=== PATIENT | female | born 1985 | race Two or more races ===

== ENCOUNTER 2022-01-15 13:55 | Observation (INO) | payer MEDICAID, OTHER ==
[2022-01-15] MEDS ORDERED: PREN-96 PO (16:12)
== END 2022-01-15 16:22 | disposition home or self-care (01) ==
LOC: UNDOADMOB 13:55 → LDRP 13:55
PROVIDERS: ADMIT Obstetrics & Gynecology; ATTEND Obstetrics & Gynecology
DX: O24.419 Gestational diabetes mellitus in pregnancy, unspecified control (principal); Z3A.35 35 weeks gestation of pregnancy
CPT/HCPCS: 76818; 82962; G0378; 59025; 81002; 82948; 94760

== ENCOUNTER 2022-01-22 07:40 | Observation (INO) | payer SELFPAY ==
[~2022-01-22 07:40] MED LIST: PREN-96 PO
== END 2022-01-22 16:15 | disposition home or self-care (01) ==
LOC: LDRP 14:15 → UNDOADMOB 14:15 → LDRP 14:20 → UNDODISOB 16:15
PROVIDERS: ADMIT Obstetrics & Gynecology; ATTEND Obstetrics & Gynecology
DX: O24.419 Gestational diabetes mellitus in pregnancy, unspecified control (principal); Z3A.36 36 weeks gestation of pregnancy
CPT/HCPCS: 59025; 76818; 81002; 82948; 82962; G0378

== ENCOUNTER 2022-01-30 07:21 | Observation (INO) | payer MEDICAID | END 2022-01-30 12:57 | disposition home or self-care (01) | LOC: LDRP 11:35 → UNDOADMOB 11:40 → UNDODISOB 12:57 | PROVIDERS: ADMIT Obstetrics & Gynecology; ATTEND Obstetrics & Gynecology | DX: O24.419 Gestational diabetes mellitus in pregnancy, unspecified control (principal); Z3A.37 37 weeks gestation of pregnancy | CPT/HCPCS: 59025; 76818; 81002; 82948; 82962; 94760; G0378 ==

== ENCOUNTER 2022-02-06 08:11 | Observation (INO) | payer MEDICAID | END 2022-02-08 15:08 | disposition home or self-care (01) | LOC: LDRP 02-08 11:55 → UNDOADMOB 02-08 11:55 → LDRP 02-08 12:10 → UNDODISOB 02-08 15:08 | PROVIDERS: ADMIT Obstetrics & Gynecology; ATTEND Obstetrics & Gynecology | DX: O24.419 Gestational diabetes mellitus in pregnancy, unspecified control (principal); Z3A.38 38 weeks gestation of pregnancy | CPT/HCPCS: 59025; 76818; 81002; 82962; 94760; G0378 ==

== ENCOUNTER 2022-02-15 11:52 | Observation (INO) | payer MEDICAID | END 2022-02-15 13:53 | disposition home or self-care (01) | LOC: LDRP 11:52 → UNDOADMOB 11:52 → LDRP 11:53 | PROVIDERS: ADMIT Obstetrics & Gynecology; ATTEND Obstetrics & Gynecology | DX: O24.419 Gestational diabetes mellitus in pregnancy, unspecified control (principal); Z3A.39 39 weeks gestation of pregnancy | CPT/HCPCS: 59025; 76818; 81002; 82948; 82962; 94760; G0378 ==

== ENCOUNTER 2022-02-18 12:11 | Inpatient (IN) | payer MEDICAID ==
[~2022-02-18] VITALS: Ht 154.9 cm; Wt 78.9 kg
[2022-02-18] MEDS ORDERED: PENICILLIN G POT 5MIL/D5 50ML 50 ML IV ONE (13:00)
[2022-02-18] MEDS ORDERED: WITCH HAZEL-GLYCERIN PAD TOP PRN (13:00)
[2022-02-18] MEDS ORDERED: PHISODERM TOP SOLN 240ML BTL TOP PRN (13:00)
[2022-02-18] MEDS ORDERED: LIDOCAINE 2%HCL (LOCAL ANESTH.) INJ 10ml MDV IJ PRN (13:00)
[2022-02-18] MEDS ORDERED: PROMETHAZINE HCL 25 MG/ML 1ML IV PRN (13:00)
[2022-02-18] MEDS ORDERED: BUTORPHANOL TARTRATE 2 MG/1 ML VIAL IV PRN ×2 (13:00)
[2022-02-18] MEDS ORDERED: LACT. RINGERS/OXYTOCIN 20UNITS 500 ML IV ONE ×2 (13:00→13:30)
[2022-02-18] MEDS ORDERED: DERMOPLAST 60ML BOTTLE TOP PRN (13:00)
[2022-02-18] MEDS: LACTATED RINGER'S 1,000 ML IV SCH ×2 (13:06→20:31)
[2022-02-18 13:46] LABS: Albumin 2.6 g/dL (3.4-5.0); Calcium 8.5 mg/dL (8.5-10.1)
[2022-02-18 13:50] LABS: BUN/Creatinine Ratio 18.2; Bilirubin, Total 0.3 mg/dL (0.2-1.0); Total Protein 6.4 g/dL (6.4-8.2)
[2022-02-18 13:57] LABS: Amphetamine Screen, Urine NEGATIVE (NEGATIVE); Barbiturate Scree,Urine NEGATIVE (NEGATIVE); Benzodiazephine Screen, Urine NEGATIVE (NEGATIVE); Cannabinoid Screen, Urine NEGATIVE (NEGATIVE); Cocaine Screen, Urine NEGATIVE (NEGATIVE); Opiate Scree,Urine NEGATIVE (NEGATIVE); Phencyclidine Screen, Urine NEGATIVE (NEGATIVE)
[2022-02-18 14:07] LABS: Urine Bacteria FEW /hpf (None Seen); Urine Blood Negative /uL (Negative); Urine Specific Gravity 1.005 (1.001-1.035); Urine WBC 4 /hpf (0 - 5)
[2022-02-18 14:08] LABS: Basophils # (auto) 0 10 ^3/uL (0-0.2); Basophils % (auto) 0.2 % (0.0-2.0); Eosinophils # (auto) 0 10 ^3/uL (0-0.8); Eosinophils % (auto) 0.6 % (0.0-7.0); Hematocrit 31.1 % (36.0-46.0); Hemoglobin 10.6 g/dL (12.2-16.2); Lymphocytes # (auto) 1.8 10 ^3/uL (0.4-5.4); Lymphocytes % (auto) 28.1 % (10.0-50.0); Mean Corpuscular Hemoglobin 28.8 pg (28.0-32.0); Mean Corpuscular Hgb Conc. 34.1 g/dL (32.0-36.0); Mean Corpuscular Volume 84.5 fL (80.0-100.0); Monocytes # (auto) 0.8 10 ^3/uL (0-1.3); Monocytes % (auto) 12.1 % (0.0-12.0); Neutrophils # (auto) 3.8 10 ^3/uL (1.6-8.6); Nucleated Red Blood Cells % 0.1 %; Red Blood Cells 3.67 10^6/uL (4.0-5.20); Red Cell Distribution Width 15.5 % (11.8-14.3); White Blood Cell 6.4 10^3/uL (4.4-10.8)
[2022-02-18 14:24] LABS: INR 0.88 (0.9-1.15); Partial Thromboplastin Time 27.1 sec (24.6-33.4)
[2022-02-18] MEDS: miSOPROStol 50 MCG per PRE-CUT 1/2 TAB PO PRN ×2 (14:27→18:45)
[2022-02-18] MEDS ORDERED: PENICILLIN G POTASSIUM 2,500,000 UNITS in D5W 5% 50 ML IV SCH (17:00)
[2022-02-18] MEDS ORDERED: LIDOCAINE 2%HCL (LOCAL ANESTH.) INJ 20ML MDV ONE (17:14)
[2022-02-18 23:00] VITALS: BP 146/82
[2022-02-19] MEDS ORDERED: ONDANSETRON ODT 4 MG TAB PO PRN
[2022-02-19] MEDS ORDERED: ACETAMINOPHEN 325 MG TAB PO PRN
[2022-02-19 02:47] VITALS: BP 132/68
[2022-02-19 07:10] VITALS: BP 117/74
[2022-02-19 11:00] VITALS: BP 131/80
[2022-02-19] MEDS: IBUPROFEN 600 MG TAB PO PRN ×2 (11:48→21:55)
[2022-02-19 15:00] VITALS: BP 129/81
[2022-02-19 19:10] VITALS: BP 120/75
[2022-02-19] MEDS ORDERED: DOCUSATE SOD 100 MG CAP PO SCH (22:00)
[2022-02-19 23:20] VITALS: BP 122/77
[2022-02-20 03:30] VITALS: BP 118/72
[2022-02-20] MEDS ORDERED: IBU600T PO (04:25)
[2022-02-20 05:06] LABS: RPR Non Reactive (Non Reactive)
[2022-02-20 07:00] VITALS: BP 134/77
[2022-02-20 11:00] VITALS: BP 127/77
== END 2022-02-20 11:48 | disposition home or self-care (01) | DRG 560 ==
LOC: LDRP 12:11
PROVIDERS: ADMIT Obstetrics & Gynecology; ATTEND Obstetrics & Gynecology
PROC: 3E033VJ Introduction of Other Hormone into Peripheral Vein, Percutaneous Approach (ICD-10-PCS; principal; 2022-02-18)
PROC: 10E0XZZ Delivery of Products of Conception, External Approach (ICD-10-PCS; 2022-02-18)
PROC: 0HQ9XZZ Repair Perineum Skin, External Approach (ICD-10-PCS; 2022-02-18)
DX: O24.420 Gestational diabetes mellitus in childbirth, diet controlled (principal); Z37.0 Single live birth; O70.0 First degree perineal laceration during delivery; Z3A.40 40 weeks gestation of pregnancy; Z90.49 Acquired absence of other specified parts of digestive tract; Z20.822 Contact with and (suspected) exposure to COVID-19
CPT/HCPCS: 36415; 59025; 59409; 80053; 80307; 81001; 81002; 82962; 85025; 85610; 85730; 86592; 86850; 86900; 86901; 94760; 96360; 96361; 96365; G0378; J2590; J7060